=== PATIENT | female | born 1980 | race African-American/Black ===

== ENCOUNTER 2021-02-07 08:43 | Emergency (ER) | payer BC, OTHER ==
[~2021-02-07] VITALS: Ht 175.3 cm; Wt 85.7 kg
[~2021-02-07 08:43] MED LIST: METHIMAZOLE5 MG; PANTOPRAZOLE SO40 MG PO; SUCRALFATE1 GM PO
[2021-02-07 09:34] LABS: CLARITY,URINE CLEAR (CLEAR); COLOR,URINE YELLOW (YELLOW); KETONES,URINE NEGATIVE (NEGATIVE); LEUKOCYTE ESTERASE ,URINE NEGATIVE (NEGATIVE); NITRITE,URINE NEGATIVE (NEGATIVE); PROTEIN,URINE DIPSTICK NEGATIVE (NEGATIVE); URINE UROBILINOGEN 0.2 mg/dL (0.2 - 1)
[2021-02-07 09:54] LABS: RBC,URINE 0-5 /HPF (0-5); WBC,URINE (MAN) 0-5 /HPF (0-5)
[2021-02-07 09:55] LABS: BACTERIA,URINE FEW /HPF; EPITHELIAL CELLS,URINE RARE /LPF
[2021-02-07] MEDS: DONNATAL/LIDOCAINE/MAALOX 30 ML SUSP PO NR (09:55)
[2021-02-07] MEDS ORDERED: MAGNESIUM/ALUMINUM/SIMETHICONE 30 ML UDC ONE (10:02)
[2021-02-07] MEDS ORDERED: BELLADONNA ALK/PHENOBARBITAL 5 ML UDC ONE (10:02)
[2021-02-07] MEDS ORDERED: LIDOCAINE VISC 2% SOLN 15 ML UDC ONE (10:02)
[2021-02-07] MEDS ORDERED: PEPCID20 MG PO (12:00)
[2021-02-07] MEDS ORDERED: AUGMENTIN 500-1 EACH PO (12:00)
[2021-02-07 12:49] VITALS: BP 130/62
== END 2021-02-07 12:53 | disposition home or self-care (01) ==
LOC: ER 09:31
DX: R10.11 Right upper quadrant pain (principal); R11.2 Nausea with vomiting, unspecified; K80.20 Calculus of gallbladder without cholecystitis without obstruction
CPT/HCPCS: 74176; 76705; 81001; 81025; 99283

== ENCOUNTER 2021-02-26 02:14 | Emergency (ER) | payer OTHER ==
[~2021-02-26] VITALS: Ht 175.3 cm; Wt 85.7 kg
[~2021-02-26 02:14] MED LIST changes: +AUGMENTIN 500-1 EACH PO; -METHIMAZOLE5 MG; +METHIMAZOLE5 MG PO; +PEPCID20 MG PO
[2021-02-26] MEDS ORDERED: ONDANSETRON HCL INJ 2MG/ML 2ML 2 MG/ML VIAL IV STA (02:26)
[2021-02-26] MEDS ORDERED: KETOROLAC TROMETHAMINE 30 MG/ML VIAL IV STA (02:26)
[2021-02-26] MEDS ORDERED: DICYCLOMINE HCL 20 MG/2 ML VIAL IM ONE (02:30)
[2021-02-26 03:10] LABS: BASOPHILS # (AUTO) 0.1 (0.0-0.1); BASOPHILS % 1.5 % (0.0-1.0); EOSINOPHILS # (AUTO) 0.2 (0.0-0.4); EOSINOPHILS % 3.3 % (0.0-6.0); HEMATOCRIT 35.3 % (34.2-44.1); HEMOGLOBIN 11.3 g/dL (12.0-16.0); LYMPHOCYTES # (AUTO) 3.4 (1.0-3.2); LYMPHOCYTES % 56.9 % (18.0-39.1); MEAN CORPUSCULAR HEMOGLOBIN 28.3 pg (28-32); MEAN CORPUSCULAR VOLUME 88.3 fL (81-99); MONOCYTES # (AUTO) 0.3 (0.2-0.8); NEUTROPHILS % 33.1 % (38.7-80.0); PLATELET COUNT 372 x10e3/uL (140-360); RED CELL DISTRIBUTION WIDTH 12.8 % (11.7-14.4)
[2021-02-26 03:22] LABS: AMYLASE 64 U/L (25-125); LIPASE 23 U/L (8-78)
[2021-02-26 03:28] LABS: ALBUMIN/GLOBULIN RATIO 1.2 (0.8-2.0); CALCIUM 8.9 mg/dL (8.4-10.2); CREATININE, SERUM 0.75 mg/dL (0.57-1.11)
== END 2021-02-26 04:10 | disposition home or self-care (01) ==
LOC: ER 02:28
DX: R10.11 Right upper quadrant pain (principal); K80.20 Calculus of gallbladder without cholecystitis without obstruction; K80.50 Calculus of bile duct without cholangitis or cholecystitis without obstruction; E05.00 Thyrotoxicosis with diffuse goiter without thyrotoxic crisis or storm
CPT/HCPCS: 36415; 80053; 82150; 83690; 84702; 85025; 99283; C9113; J0500; J1885; J2405

== ENCOUNTER → 2021-02-28 | Day surgery (SDC) | payer OTHER ==
[~2021-02-28] MED LIST changes: +BUPIVACAINE HCL 0.5% INJ 30 ML VIAL INJ ONE; +DESFLURANE 240 ML BTL INH ONE; +DEXAMETHASONE SOD PHOS INJ 4 MG/ML VIAL ONE; +GLYCOPYRROLATE INJ 0.2 MG/ML VIAL ONE; +LIDOCAINE HCL 2% LOCAL INJ 5 ML SDV VIAL INJ ONE; +MEPERIDINE HCL INJ 25 MG/ML VIAL ONE; +NEOSTIGMINE 1 MG/ML 10ML VIAL ONE; +ONDANSETRON HCL INJ 2MG/ML 2ML 2 MG/ML VIAL ONE; +PROPOFOL IV EMULSION 10 MG/ML 20 ML VIAL ONE; +ROCURONIUM BROMIDE 10 MG/ML 5ML VIAL IV ONE
[2021-02-28 15:50] VITALS: BP 123/65
== END | disposition home or self-care (01) ==
LOC: OR 10:36
PROVIDERS: ATTEND Surgery
DX: K80.10 Calculus of gallbladder with chronic cholecystitis without obstruction (principal); K82.8 Other specified diseases of gallbladder; K21.9 Gastro-esophageal reflux disease without esophagitis; F41.9 Anxiety disorder, unspecified; Z01.810 Encounter for preprocedural cardiovascular examination; Z01.812 Encounter for preprocedural laboratory examination; Z20.822 Contact with and (suspected) exposure to COVID-19
CPT/HCPCS: 47562; 88304; 93005; C1766; J1100; J2001; J2175; J2405; J2704; J2710; U0002